=== PATIENT | female | born 1980 | race Caucasian/White ===

== ENCOUNTER 2020-02-23 11:36 | Outpatient (REF) | payer SELFPAY ==
[2020-02-27 07:13] LABS: Patient Race White; SARS-CoV-2 RNA Undetected (Undetected); SARS-CoV-2 Specimen Source Nasal
== END 2020-02-23 11:56 ==
LOC: NCHCN 11:36
PROVIDERS: PCP Physician Assistant; Visit Provider Nurse Practitioner Family
DX: Z20.828 Contact with and (suspected) exposure to other viral communicable diseases (principal)
CPT/HCPCS: U0003

== ENCOUNTER 2020-08-08 15:07 | Outpatient (REF) | payer MEDICAID, SELFPAY ==
[2020-08-08 16:40] LABS: Calculated LDL 136 mg/dL (<100); Cholesterol 216 mg/dL (<200); Glucose 101 mg/dL (74-106); HDL Cholesterol 54 mg/dL (40-60); TSH (W/Ref FT4) 1.74 uIU/mL (0.36-3.74); Triglyceride 133 mg/dL (<150)
== END 2020-08-08 15:08 | disposition home or self-care (01) ==
LOC: NCHCN 15:07
PROVIDERS: PCP Physician Assistant; Visit Provider Nurse Practitioner Family
DX: R53.83 Other fatigue (principal); Z13.220 Encounter for screening for lipoid disorders; Z13.1 Encounter for screening for diabetes mellitus
CPT/HCPCS: 80061; 82947; 84443

== ENCOUNTER 2022-04-10 09:45 | Outpatient (REF) | payer MEDICAID, SELFPAY ==
--- NOTE | 2022-04-10 09:50 | PAPFT_PTH ---
PATIENT: Lucille Wolf LOC: [facility]#:[id number] AGE/SX: 41/F ROOM: RE04/10/[address]: Harvey Mcdowell : 1980 BED: DIS: 04/10/2022 SPEC #: [id number] RECD: 04/10/22 18:38 STATUS: SAMSON REQ #: [id number] KELLY: 04/10/22 09:[address]: Chantal Mcdowelllaide DEPT: [facility] Cytology RECD BY: Radha Cazares ENTERED: 04/10/22 18:39 SP TYPE: PAPFT OTHR DR: Narendra Andino Tissues: 1 - CX/ENDOCX FOR PAP SMEARS Procedures: PAP THIN PREP/[facility] Screening HPV DNA PROBE Comments: [id number]
== END 2022-04-10 09:46 | disposition home or self-care (01) ==
LOC: NCHCN 09:45
PROVIDERS: PCP Physician Assistant; Visit Provider Nurse Practitioner Family
DX: Z12.4 Encounter for screening for malignant neoplasm of cervix (principal); Z11.51 Encounter for screening for human papillomavirus (HPV)
CPT/HCPCS: 88142; 87624